=== PATIENT | female | born 1970 | race Caucasian/White ===

== ENCOUNTER 2017-04-08 18:52 | Emergency (ER) | payer BC ==
[~2017-04-08] VITALS: Ht 154.9 cm; Wt 99.6 kg
[~2017-04-08 18:52] MED LIST: ADVIL200 MG PO; ASPIR 8181 M1 PO; FLEXERIL10 MG PO; MOTRIN800 MG PO; NORVASC5 MG PO; PERCOCET 5/31 TABLET PO; PROAIR HFA8.5 GM IH; PROPRANOLOL HCL80 MG PO; TOPAMAX50 MG PO
[2017-04-08 21:11] VITALS: BP 234/118
== END 2017-04-08 21:12 | disposition home or self-care (01) ==
LOC: EME 18:52
DX: S63.501A Unspecified sprain of right wrist, initial encounter (principal); S60.221A Contusion of right hand, initial encounter; W10.9XXA Fall (on) (from) unspecified stairs and steps, initial encounter; Z88.0 Allergy status to penicillin
CPT/HCPCS: 73130; 99281; 99283